=== PATIENT | female | born 2005 | race Caucasian/White ===

== ENCOUNTER 2023-05-17 06:23 | Emergency (ER) | payer OTHER ==
[2023-05-17 06:35] VITALS: BP 108/58; PULSE 70; RESP 18; TEMP 97.9; BMI 25.2
[2023-05-17 09:00] LABS: BASO % 0.7 % (0-2.0); EOS % 3.7 % (0-4.5); HEMATOCRIT 35.8 % (32.4-45.2); HEMOGLOBIN 12.4 GM/dL (10.7-15.3); LYMPH % 35.1 % (8-40); MCH 32.2 pg (25.7-33.7); MCHC 34.6 g/dl (32.0-36.0); MEAN PLT VOLUME 7.2 fl (7.5-11.1); NEUT % 54.5 % (42.8-82.8); PH,URINE 5.5 (5.0-8.0); PLATELET COUNT 306 10^3/uL (134-434); RBC 3.85 M/mm3 (3.60-5.2); RDW 13.4 % (11.6-15.6); URINE APPEARANCE Error; URINE BILIRUBIN NEGATIVE (NEGATIVE); URINE COLOR YELLOW; URINE GLUCOSE (UA) NEGATIVE (NEGATIVE); URINE KETONE TRACE (NEGATIVE); URINE LEUK ESTERASE NEGATIVE (NEGATIVE); URINE NITRITE NEGATIVE (NEGATIVE); URINE PROTEIN NEGATIVE (NEGATIVE); WHITE BLOOD COUNT 5.3 K/mm3 (4.0-10.0)
[2023-05-17 09:15] LABS: CALCIUM 8.6 mg/dL (8.5-10.1); CHLORIDE 108 mmol/L (98-107); POTASSIUM 3.9 mmol/L (3.5-5.1); SODIUM 141 mmol/L (136-145)
[2023-05-17 09:16] LABS: ALBUMIN 3.8 g/dl (3.4-5.0); ANION GAP 7 mmol/L (4-13); BLOOD UREA NITROGEN 14.5 mg/dL (7-18); CO2 26 mmol/L (21-32); GLUCOSE,RANDOM 100 mg/dL (74-106)
[2023-05-17 09:19] LABS: CREATININE 0.5 mg/dL (0.55-1.3); SGOT/AST 22 U/L (15-37); SGPT/ALT 27 U/L (13-61)
[2023-05-17 09:20] LABS: BILIRUBIN,TOTAL 0.3 mg/dL (0.2-1)
[2023-05-17 09:21] LABS: TOT PROT 6.7 g/dl (6.4-8.2)
[2023-05-17 09:22] LABS: ALK PHOS 110 U/L (45-117)
[2023-05-17 10:06] LABS: ERYTHROCYTE SEDIMENTATION RATE 8 mm/hr (0-20)
[2023-05-17] MEDS ORDERED: IBUPROFEN 600 MG TABLET (FP) PO ONE ×2 (10:14→10:22)
== END 2023-05-17 11:13 | disposition home or self-care (01) ==
LOC: JER 06:23
DX: M79.604 Pain in right leg (principal); R20.0 Anesthesia of skin
CPT/HCPCS: 36415; 80053; 81003; 83735; 84703; 85025; 85651; 86140; 87086; 93971-TC; 99284-25

== ENCOUNTER 2024-02-10 22:08 | Emergency (ER) | payer OTHER ==
[2024-02-10 22:21] VITALS: BP 98/61; PULSE 70; RESP 18; TEMP 98.3; BMI 24.8
[2024-02-11] MEDS ORDERED: ACETAMINOPHEN 500 MG TABLET (FP) ONE (00:07)
[2024-02-11] MEDS: ACETAMINOPHEN 500 MG TABLET (FP) PO ONE (00:11)
[2024-02-11] MEDS ORDERED: CEPHALEXIN MONOHYDRATE 500 MG CAPSULE (UD) ONE ×2 (00:32→00:33)
[2024-02-11] MEDS: CEPHALEXIN MONOHYDRATE 500 MG CAPSULE (UD) PO ONE (00:37)
[2024-02-11] MEDS ORDERED: DIPHTH,PERTUSS(ACELL),TET 0.5 ML DISP.SYRIN IM ONE (00:47)
[2024-02-11] MEDS: DIPHTH,PERTUSS(ACELL),TET 0.5 ML DISP.SYRIN IM ONE (00:50)
== END 2024-02-11 01:00 | disposition home or self-care (01) ==
LOC: JER 22:08
PROC: 3E0234Z Introduction of Serum, Toxoid and Vaccine into Muscle, Percutaneous Approach (ICD-10-PCS; principal; 2024-02-11)
DX: L08.9 Local infection of the skin and subcutaneous tissue, unspecified (principal); Z23 Encounter for immunization
CPT/HCPCS: 90471; 90715; 99284-25